=== PATIENT | female | born 1945 | race Caucasian/White ===

== ENCOUNTER → 2016-11-24 | Day surgery (SDC) | payer MEDICARE ==
[~2016-11-24] MED LIST: ABILIFY10 MG PO; ALBUTEROL17 GM INH; AMBIEN10 MG PO; ASPIRIN81 M2 PO; ASPIRIN81 MG PO; BACTRIM DS TABL1 TA1 PO; BENZONATATE PO; BUDEPRION XL150 MG PO; CONCERTA18 MG PO; CRESTOR10 MG PO; EFFEXOR PO; EFFEXOR37.5 MG PO; FLEXERIL10 MG PO; KEFLEX500 MG PO; LIPITOR40 MG PO; LORTAB 5/500 TA1 TA1 PO; LORTAB 7.5-5001 TAB PO; MS CONTIN15 M1 PO; NAPROSYN500 MG PO; NORVASC10 MG PO; ORUDIS75 M1 DOB; OXYCODONE HCL10 MG PO; PERCOCET10 PO; SYNTHROID PO; SYNTHROID125 PO; TIZANIDINE HCL4 M1 PO; VICODIN PO; [UNRECOGNIZED DRUG - REMARK] PO
--- NOTE | ~2016-11-24 | OR ---
Unit #: [id number] #: [id number] Patient: LISBET UNDERWOOD [id number] [address] [address] [id number] O MR#: [id number] NAME: LISBET UNDERWOOD ROOM: Date of Procedure: 11/24/2016 Admission Date: 11/24/2016 Surgeon: Craig Roberts M.D. : 1945 Attending Physician: Craig Roberts M.D. Primary Care Physician: Rosenda Obregon A.P.R.N. OPERATIVE REPORT PREOPERATIVE DIAGNOSES 1. Back pain. 2. Radiculopathy. 3. Degenerative disk disease. 4. Lumbar spinal stenosis. POSTOPERATIVE DIAGNOSES 1. Back pain. 2. Radiculopathy. 3. Degenerative disk disease. 4. Lumbar spinal stenosis. PROCEDURE PERFORMED Lumbar epidural steroid injection with intravenous sedation and fluoroscopic guidance for needle localization. INDICATIONS FOR PROCEDURE The patient is a 71-year-old female, partial return of back and right lower extremity pain due to nonsurgical degenerative disk and spine disease. Last epidural steroid injections in a series of two completed 4-1/2 months ago. The patient had some return of the pain over the last few weeks. Plan is to repeat injection based on her history, pathology, symptomatology, and prior response to treatment. DESCRIPTION OF PROCEDURE The patient was placed in a seated position. Standard monitors were applied. 1 mg Versed was given for sedation and anxiolysis, which was adequate. Vital signs remained stable. Sterile prep and drape then of the lumbar area was performed. The skin at the L4-L5 level was localized with 1% lidocaine. An 18-gauge Magnet Systemstead needle was then advanced via loss of resistance technique and fluoroscopic guidance in toward the epidural space. After confirming proper positioning with fluoroscopy and radiographic contrast, 80 mg of Depo-Medrol and 4 mL of 0.125% bupivacaine were deposited. The patient tolerated the procedure well and was discharged to recovery room in stable condition. Dictated by... Craig Roberts M.D. LHP/modl Unit #: [id number] #: [id number] Patient: LISBET UNDERWOOD TD: 11/25/2016 04:53 JOB #: [id number] OPERATIVE REPORT Page 1 of 1 X Craig Roberts MD X PROCEDURE OPERATIVE NOTE
== END | disposition home or self-care (01) ==
LOC: CCSC 10:34
DX: M51.16 Intervertebral disc disorders with radiculopathy, lumbar region (principal); M48.06 Spinal stenosis, lumbar region
CPT/HCPCS: J1040; J2250

== ENCOUNTER → 2016-11-30 | Outpatient (CLI) | payer MEDICARE ==
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
== END | disposition home or self-care (01) ==
LOC: CMRI 13:46
DX: M48.06 Spinal stenosis, lumbar region (principal); M54.5 Low back pain; N28.89 Other specified disorders of kidney and ureter; M48.54XS Collapsed vertebra, not elsewhere classified, thoracic region, sequela of fracture; M40.204 Unspecified kyphosis, thoracic region; M51.36 Other intervertebral disc degeneration, lumbar region
CPT/HCPCS: 72148

== ENCOUNTER → 2016-12-16 | Outpatient (CLI) | payer MEDICARE ==
--- NOTE | ~2016-12-16 | CT3 ---
[facility] A Service of [facility] RADIOLOGY TEXT RESULTS PATIENT: LISBET UNDERWOOD [facility] UNIT #: [id number] AGE: [address]: Craig Roberts MD SEX: F ORDER DR: [id number] [facility] [address] [place], [place] [address] [id number] O MR#: [id number] Acc #: [id number] NAME: LISBET UNDERWOOD. : 1945 SEX: F STUDY DATE/TIME: 12/16/2016 13:04 UNIT: [facility] ROOM: STUDY DESCRIPTION: CT Abd and Pelv WWo Cont Attending Physician: Craig Roberts M.D. Referring Physician: Craig Roberts M.D. Ordering Physician: Craig Roberts M.D. Primary Care Physician: Generic Doctor Not In System MEDICAL IMAGING REPORT This report is preliminary unless electronic signature is present EXAM CT of the abdomen and pelvis without and with contrast INDICATION Ms. Underwood is a 71-year-old lady who underwent an MRI of the lumbar spine on December 01, 2016 for spinal stenosis on that study she was noted to have a mass within the right kidney. TECHNIQUE Axial precontrast images are obtained through the kidneys. This was followed by arterial 90 second delayed and 3-minute delayed-phase imaging through the kidneys. This CT exam was performed with one or more of the following radiation dose reduction techniques: automatic control, adjustment of mA and/or kV according to patient size, and iterative reconstruction. FINDINGS Images through the lung bases demonstrates some mild dependent atelectasis and bilateral breast implants. Within the inferior pole of the right kidney the patient has a 3.8 x 3.6 cm enhancing mass, which is characteristic of renal cell carcinoma, it was present in 2010 when it measured about 2.2 cm but certainly has increased in size when compared to that examination. I do not see any convincing evidence of renal vein involvement. There is some mild stranding seen around the right kidney but I do not think it is significantly changed when compared to the prior study, no suspicious masses are seen on the left. Patient probably has an additional cyst within the inferior pole of the right kidney. A second low attenuation lesion seen more superiorly within the right kidney may reflect an additional cyst although it is really too small to accurately characterize, attention to it on subsequent exams is recommended. [facility] A Service of [facility] RADIOLOGY TEXT RESULTS PATIENT: LISBET UNDERWOOD LOCATION: [facility] : 44 UNIT #: [id number] AGE: [address]: Craig Roberts MD SEX: F ORDER DR: Liver and gallbladder appear unremarkable. Calcified granulomata are seen within the spleen, no stones are identified within either kidney on unenhanced CT images. There is atherosclerotic involvement of the abdominal aorta which extends into the visceral vessels. Celiac axis is patent. I do think there is probably some narrowing at the origin of the superior mesenteric artery and some additional at least moderate narrowing involving the renal arteries bilaterally. Single renal arteries are identified bilaterally and again I do not see any convincing evidence of renal vein involvement. I do not see any suspicious retroperitoneal adenopathy. The pancreas is atrophic. There is a small fat-containing umbilical hernia. Review of bony windows demonstrates osteoporosis. I do not see any aggressive osseous abnormalities. Patient is again noted to have multiple compression deformities the lumbar spine as well as of T12 axial images do not extend all the way into the pelvis although the coronal and sagittal reformatted images do, patient does have a large calcified uterine fibroid. This was also present on the prior study. IMPRESSION 1. This patient has a 3.8 x 3.6 cm enhancing mass seen within the inferior pole of the right kidney characteristic of renal cell carcinoma until proven otherwise. There are 2 low-attenuation lesions, additionally seen within the inferior pole of the right kidney. I suspect that these reflects cysts but are incompletely characterized due to their small size I do not see any renal vein involvement or any involvement of the pararenal fat. No retroperitoneal adenopathy is seen. 2. Dense atherosclerotic involvement of the abdominal aorta with extension into the iliac vessels and visceral vessels. Patient appears to have single renal arteries bilaterally. 3. Osteoporosis with multiple lumbar compression fractures. 4. Please see the body of the report for any other additional incidental findings. Dictated by... Marian F. Martinez, M.D. THIS IS AN ELECTRONICALLY VERIFIED REPORT Marian Martinez M.D. at 12/17/2016 2:09 PM SHARAD/orlin TD: 12/17/2016 02:25 JOB #: [id number] MEDICAL IMAGING REPORT Page 1 of 1 COPY
[2016-12-16 16:31] LABS: POC - CREATININE 0.81 mg/dL (0.44-1.03); POC - GFR >60.0 mL/min (>60)
== END | disposition home or self-care (01) ==
LOC: CCAT 12:08
PROVIDERS: Pain Medicine Pain Medicine
DX: N28.89 Other specified disorders of kidney and ureter (principal); I70.0 Atherosclerosis of aorta; M81.0 Age-related osteoporosis without current pathological fracture; M48.56XA Collapsed vertebra, not elsewhere classified, lumbar region, initial encounter for fracture
CPT/HCPCS: 74178; 82565; Q9967

== ENCOUNTER → 2017-03-21 | Day surgery (SDC) | payer MEDICARE ==
--- NOTE | ~2017-03-21 | OR ---
Unit #: [id number] #: [id number] Patient: LISBET UNDERWOOD [id number] [place], [place] [address] [id number] O MR#: [id number] NAME: LISBET UNDERWOOD ROOM: Date of Procedure: 03/21/2017 Admission Date: 03/21/2017 Surgeon: Craig Roberts M.D. : 1945 Attending Physician: Craig Roberts M.D. Primary Care Physician: Generic Doctor Not In System OPERATIVE REPORT PREOPERATIVE DIAGNOSES Back pain, radiculopathy, degenerative lumbar disk disease, lumbar compression fracture. POSTOPERATIVE DIAGNOSIS Back pain, radiculopathy, degenerative lumbar disk disease, lumbar compression fracture. PROCEDURE PERFORMED Lumbar epidural steroid injection with intravenous sedation and fluoroscopic guidance for needle localization. INDICATIONS FOR PROCEDURE The patient is a 71-year-old female with return of back and right lower extremity pain. She has multilevel multifactorial degenerative disk and spine disease, most significant at the L4-L5 level. She settled with medical management and p.r.n. single epidural steroids. Last injection was done 4 months ago. Plan is to repeat injection at this point secondary to flare in her pain, her pathology, symptomatology, and treatment options. DESCRIPTION OF PROCEDURE The patient was placed in a seated position. Standard monitors were applied. 1 mg of Versed was given for sedation and anxiolysis, which were adequate. Vital signs remained stable. Sterile prep and drape then of lumbar area was performed. The skin then at the right of midline at the L4 level was localized with 1% lidocaine. An 18-gauge NetMovietead needle was then advanced via right paramedian approach and loss of resistance technique in toward the epidural space. The patient did not complain of pain or paresthesia during needle advancement. After confirming proper needle tip positioning with fluoroscopy and radiographic contrast, 80 mg of Depo-Medrol and 6 mL of 0.125% bupivacaine were deposited. The patient tolerated the procedure otherwise well and was discharged to the recovery room in stable condition. Dictated by... João Herzog/elias TD: 03/21/2017 13:15 Unit #: [id number] #: [id number] Patient: LISBET UNDERWOOD JOB #: [id number] OPERATIVE REPORT Page 1 of 1 X Craig Roberts MD X PROCEDURE OPERATIVE NOTE
== END | disposition home or self-care (01) ==
LOC: CCSC 10:23
PROVIDERS: Pain Medicine Pain Medicine
PROC: 3E0S33Z Introduction of Anti-inflammatory into Epidural Space, Percutaneous Approach (ICD-10-PCS; principal; 2017-03-21 11:00)
DX: M51.16 Intervertebral disc disorders with radiculopathy, lumbar region (principal); M48.56XA Collapsed vertebra, not elsewhere classified, lumbar region, initial encounter for fracture
CPT/HCPCS: J1040; J2250

== ENCOUNTER 2017-04-11 05:35 | Observation (INO) | payer MEDICARE ==
[~2017-04-11] VITALS: Ht 157.5 cm; Wt 49.5 kg
--- NOTE | ~2017-04-11 | CR72 ---
[facility] A Service of [facility] RADIOLOGY TEXT RESULTS PATIENT: LISBET UNDERWOOD LOCATION: [place] [address] : 43 UNIT #: [id number] AGE: [address]: Kavitha Nicolas MD SEX: F ORDER DR: [id number] [facility] [address] [place], [place] [address] [id number] I MR#: [id number] Acc #: [id number] NAME: LISBET UNDERWOOD. : 1945 SEX: F STUDY DATE/TIME: 04/11/2017 6:06 UNIT: [facility] ROOM: [facility] STUDY DESCRIPTION: CR Chest Single View Portable Attending Physician: Kavitha Nicoals M.D. Ordering Physician: Lio Kelley M.D. Primary Care Physician: Primary Care Physician No MEDICAL IMAGING REPORT This report is preliminary unless electronic signature is present EXAM Portable chest HISTORY Chest pain, shortness of air since yesterday. COMPARISON 07/25/2011. FINDINGS Portable view of the chest was obtained. Heart size and vascularity are normal. Lungs appear clear except for some minimal atelectasis in the right infrahilar region. Bones are normal. IMPRESSION 1. In the right infrahilar region there is some minimal density which is transversely oriented suggesting some atelectasis. I cannot rule out a small middle lobe infiltrate. Otherwise study is normal. Dictated by... Daniel Turner M.D. THIS IS AN ELECTRONICALLY VERIFIED REPORT Daniel Turner M.D. at 04/11/2017 1:29 PM RAINER/rnr TD: 04/11/2017 12:59 JOB #: [id number] MEDICAL IMAGING REPORT [facility] A Service [facility] RADIOLOGY TEXT RESULTS PATIENT: LISBET UNDERWOOD LOCATION: [facility]09-04 : 44 UNIT #: [id number] AGE: [address]: Kavitha Nicolas MD SEX: F ORDER DR: Page 1 of 1 COPY
--- NOTE | ~2017-04-11 | CT71 ---
[facility] A Service [facility] RADIOLOGY TEXT RESULTS PATIENT: LISBET UNDERWOOD LOCATION: [place] [address] : 43 UNIT #: [id number] AGE: [address]: Kavitha Nicolas MD SEX: F ORDER DR: [id number] [facility] [address] [place], [place] [address] [id number] I MR#: [id number] Acc #: [id number] NAME: LISBET UNDERWOOD. : 1945 SEX: F STUDY DATE/TIME: 04/11/2017 6:21 UNIT: [facility] ROOM: [facility] STUDY DESCRIPTION: CT Head Wo Contrast Attending Physician: Kavitha Nicolas M.D. Ordering Physician: Lio Kelley M.D. Primary Care Physician: No Primary Care Physician MEDICAL IMAGING REPORT This report is preliminary unless electronic signature is present EXAM CT scan of the brain without contrast. INDICATION Confusion since yesterday with headache. TECHNIQUE Unenhanced images were obtained through the brain. This CT exam was performed with one or more of the following radiation dose reduction techniques: automatic exposure control, adjustment of mA and/or kV according to patient size, and iterative reconstruction. FINDINGS There is mild generalized atrophy with minimal small vessel ischemic changes. There are no masses or extraaxial fluid collections. IMPRESSION Mild atrophy and small vessel ischemic changes. No acute abnormalities. Dictated by... Daniel Turner M.D. THIS IS AN ELECTRONICALLY VERIFIED REPORT Daniel Turner M.D. at 04/11/2017 3:25 PM RAINER/mike TD: 04/11/2017 13:40 JOB #: [id number] MEDICAL IMAGING REPORT [facility] A Service [facility] RADIOLOGY TEXT RESULTS PATIENT: LISBET UNDERWOOD LOCATION: [facility]09-04 : 43 UNIT #: [id number] AGE: [address]: Kavitha Nicolas MD SEX: F ORDER DR: Page 1 of 1 COPY
--- NOTE | ~2017-04-11 | MR18 ---
[facility] A Service of [facility] RADIOLOGY TEXT RESULTS PATIENT: LISBET UNDERWOOD LOCATION: [place] [address]- : 43 UNIT #: [id number] AGE: [address]: Kavitha Nicolas MD SEX: F ORDER DR: [id number] [facility] [address] [place], [place] [address] [id number] I MR#: [id number] Acc #: [id number] NAME: LISBET UNDERWOOD. : 1945 SEX: F STUDY DATE/TIME: 04/11/2017 22:34 UNIT: [facility] ROOM: [facility] STUDY DESCRIPTION: MR Brain Wo Contrast Attending Physician: Kavitha Nicolas M.D. Ordering Physician: Kavitha Nicolas M.D. Primary Care Physician: Primary Care Physician No MRI CENTER REPORT This report is preliminary unless electronic signature is present. EXAM MRI of the brain without contrast, 04/11/[address] head without contrast, 04/11/2017 HISTORY Memory loss that began around [place]. It is worse in the last month. Confusion. History of thyroid carcinoma. FINDINGS Multi-sequence, multiplanar imaging of the brain was obtained without contrast as per the request. No acute stroke, space occupying intracranial mass, mass effect, midline shift or hydrocephalus. Scattered multiple hyperintense T2 signal lesions are noted in the periventricular white matter, subcortical white matter, bilateral basal ganglia, right thalamus and devonte. Thick slices through the sella with the pituitary gland, pineal region and upper cervical spine do not demonstrate any significant abnormality. IMPRESSION 1. Scattered multiple hyperintense T2 signal lesions are noted in the brain, likely related to moderate chronic microvascular ischemic change, migraine with possible old lacunar infarcts among them. It is based on age and statistics, nonspecific. 2. There is diffuse mild parenchymal volume loss predominantly involving bifrontal parietal lobes extending towards the temporal lobes. It does not appear to be significantly worse for patient's age. Dictated by... Melly Bunn M.D. [facility] A Service of [facility] RADIOLOGY TEXT RESULTS PATIENT: LISBET UNDERWOOD LOCATION: [place] [address] : 43 UNIT #: [id number] AGE: [address]: Kavitha Nicolas MD SEX: F ORDER DR: THIS IS AN ELECTRONICALLY VERIFIED REPORT Melly Bunn M.D. at 04/12/2017 3:29 PM CPR/william TD: 04/12/2017 12:33 JOB #: [id number] MRI CENTER REPORT Page 1 of 1 COPY
--- NOTE | ~2017-04-11 | HP ---
Unit #: [id number] #: [id number] Patient: LISBET UNDERWOOD [id number] [address] [place], [place] [address] [id number] I MR#: [id number] NAME: LISBET UNDERWOOD. ROOM: 35742 Age: 71 Sex: F Admission Date: 04/11/2017 : 1945 Attending Physician: Kavitha Nicolas M.D. Primary Care Physician: No Primary Care Physician HISTORY AND PHYSICAL PRIMARY CARE PROVIDER Unknown. CHIEF COMPLAINT Chest pain, memory loss. HISTORY OF PRESENT ILLNESS Ms. Underwood is a 71-year-old female, who presents to the ER with complaints of chest pain. I will note patient is a very poor historian and story changes between the ER notes and my interview. Patient states she developed chest pain last evening, described as in the substernal region and sharp/stabby. It was associated with nausea intermittently but no emesis, shortness of breath and palpitations. She also felt as if her heart was racing. She states she was anxious with the episode. She tells me she has only been having the chest pain for the last couple of days. However, according to the ER notes, she has had chest pain on and off for months. The chest pain itself will only last a few minutes and resolves spontaneously. She has not been getting more short of breath with exertion, nor does she have any chest pain with exertion. She is also complaining of some increasing memory loss. Again, history is vague. Per ER physician, EMS was told by her family that she has had increasing memory loss over the last month. However, patient tells me it is over the past couple of days. She says she is forgetful and cannot always remember what she wants to say. Upon presentation to this emergency department, patient received aspirin. Vital signs were all stable with the exception of elevated blood pressure of 167/80. Examination per ER records is unremarkable. Initial troponin x2 has been negative. The patient does not have any chest pain now. She denies any symptoms of heartburn. She denies any constipation. She denies any pain with movement. Patient is being placed in observation for further workup. I will note that patient's urinalysis in the emergency department had 25-50 WBCs but no bacteria and she received a single dose of Macrobid. PAST MEDICAL HISTORY Past medical history I will note is essentially taken from the ER list. Patient really cannot tell me much of her medical history. 1. Questionable renal cell carcinoma, status post partial right nephrectomy at [facility] in February of 2017. 2. History of thyroid cancer, status post thyroidectomy. 3. Mitral valve prolapse. 4. Depression. 5. Hypertension. 6. Chronic pain syndrome for which patient is followed by Dr. Roberts on an outpatient basis. Unit #: [id number] #: [id number] Patient: LISBET UNDERWOOD 7. Tobaccoism. PAST SURGICAL HISTORY 1. Partial right nephrectomy. 2. Thyroidectomy. 3. Some sort of facial plastic surgery. MEDICATIONS Home medications are not available given her pharmacy is closed but per med list most recently available, the patient received: 1. Synthroid. 2. Abilify. 3. Effexor. 4. Tizanidine. 5. Lipitor. 6. Lortab. 7. Morphine. She initially denies any med changes, then states she recently had morphine changed. FAMILY HISTORY I am unable to obtain. Patient does not know. SOCIAL HISTORY The patient lives at home with her grandson. She smokes a pack of cigarettes per day and has so for 50 years; however, she states she quit yesterday. She denies any illicit drug use. She states she did have a fall at home last night, she thinks off of her bed, but she is not having any pain. REVIEW OF SYSTEMS Review of systems is difficult to obtain given patient's tangential, but she does not have any chest pain now. She does not have any cough. She does not have any fever, any shortness of breath, any constipation, diarrhea, melena, hematochezia, or dysuria. No new joint pain. No new tingling, numbness, weakness of extremities. No difficulty with speech. PHYSICAL EXAMINATION VITAL SIGNS: Temperature 98.2, blood pressure currently in the room 151/65, pulse rate 74, respiratory rate 16, oxygen saturation 98% on room air. GENERAL: Patient is awake. She is alert. She is oriented to self and occasionally to place but not to time. HEENT: Pupils equally round and reactive to light bilaterally. Anicteric sclerae. No conjunctival pallor. Oropharynx with dry mucous membranes. No erythema or exudate. NECK: Supple. No lymphadenopathy. No appreciable thyroid noted. No JVD. HEART: Regular rate and rhythm without any appreciable murmur, rub, or gallop. LUNGS: Mildly diminished bilaterally but otherwise clear without wheeze, rhonchi, or crackles. No tenderness to palpation of anterior chest. ABDOMEN: Soft. It is nontender. It is nondistended. Positive bowel sounds. No appreciable hepatosplenomegaly. Patient did not want to remove her clothing to evaluate for a nephrectomy scar. EXTREMITIES: No cyanosis, clubbing, or edema. Pedal pulse 2/4. SKIN: Skin is warm, moist, without rash. Unit #: [id number] #: [id number] Patient: LISBET UNDERWOOD NEUROLOGIC: Cranial nerves II-XII intact. Sensation, strength, and deep tendon reflexes are grossly normal in the upper and lower extremities bilaterally. Negative Babinski bilaterally. Cerebellar function appears intact. Gait was not assessed, however. PSYCHIATRIC: Again oriented really x2 at the most. Very tangential. Very forgetful, but denies any suicidal or homicidal ideation. DIAGNOSTIC STUDIES LABORATORY: Lab work done in the emergency department today includes a CBC which is completely normal with a white blood cell count of 7.5, hemoglobin 13.3, platelet count 235,000. Troponin has been negative x2. INR is 1. CMP reveals a sodium of 137, potassium 3.7, chloride 101, bicarbonate 25, BUN 8, creatinine 0.7, glucose 100. LFTs are normal including an albumin of 3.7. Urinalysis reveals 1+ leukocyte esterase, 2+ blood, 10-25 WBCs but is negative for bacteria with occasional squamous cells. IMAGING: Chest x-ray done in the emergency department revealed some right middle lobe atelectasis. CT scan of the head without contrast reveals small vessel disease and atrophy with no other acute findings. CARDIOVASCULAR: EKG done in the emergency department reveals normal sinus rhythm. Patient does have Q waves present in III and aVF, also has Q waves in V1, V2, and V3. However, there is no other acute ST or T wave abnormalities. ASSESSMENT 1. Atypical chest pain. 2. Memory loss, question acute versus chronic with progression. 3. Hypertension. 4. Anxiety with depression. 5. Chronic pain syndrome, maintained on chronic narcotics. 6. Patient report of recent partial nephrectomy. 7. History of thyroid cancer, status post thyroidectomy. 8. Tobacco abuse. PLAN 1. Will place patient in observation on telemetry. 2. Serial troponins remain negative as has workup. I am going to arrange for Lexiscan Cardiolite this morning to rule out cardiac cause of chest pain. 3. I will also place patient on Protonix but again she denies any symptoms of heartburn. 4. I will check TSH and vitamin B12 in regard to patient's memory loss and further evaluate. Will try to obtain some history from family as well. 5. Will obtain home medications in regard to hypertension. If on any, re-initiate. 6. I will check a urine drug screen to be sure we are not missing anything medication matute that may be contributing to patient's memory loss. Will re-initiate meds to avoid withdrawal. 7. I will try to get a copy of most recent history and physical, discharge summary, and [employer] sales consultant notes from [place] from February of 2017 when patient states she had her nephrectomy. 8. I will provide nitroglycerin on a p.r.n. basis and will check a fasting lipid panel as well. Will continue aspirin as well. Unit #: [id number] #: [id number] Patient: LISBET UNDERWOOD 9. Physical therapy, occupational therapy to evaluate and treat. 10. Hold deep venous thrombosis prophylaxis given hospitalization likely to be less than 48 hours. 11. Will re-initiate meds for depression and have psychiatry see if workup otherwise negative. Dictated by Kavitha Nicolas M.D. Adele/kd TD: 04/11/2017 09:00 JOB #: [id number] HISTORY AND PHYSICAL Page 1 of 1 X Kavitha Nicolas MD X HISTORY AND PHYSICAL
--- NOTE | ~2017-04-11 | EKG ---
PATIENT: LISBET UNDERWOOD UNIT #: [id number] Ventricular Rate: 77 BPM Atrial Rate: 77 BPM P-R Interval: 182 ms QRS Duration: 110 ms Q-T Interval: 432 ms QTC Calculation(Bezet): 488 ms P [place]: 23 degrees Calculated R [place]: -7 degrees Calculated T [place]: 54 degrees Diagnosis Line: Normal sinus rhythm Diagnosis Line: Inferior infarct , age undetermined Diagnosis Line: Anterior infarct (cited on or before 19-JUL-2011) Diagnosis Line: Abnormal ECG Diagnosis Line: When compared with ECG of 19-JUL-2011 16:39, Diagnosis Line: Inferior infarct is now Present Diagnosis Line: Questionable change in initial forces of Anterior Diagnosis Line: leads Diagnosis Line: T wave inversion no longer evident in Anterior Diagnosis Line: leads Diagnosis Line: Confirmed by NANCY SMITH MD ([id number]) on 04/11/2017 Diagnosis Line: 11:58:38 PM INTERPRETING MD: SARAH MENDEZ
--- NOTE | ~2017-04-11 | CO ---
Unit #: [id number] #: [id number] Patient: LISBET UNDERWOOD [id number] [address] [address] [id number] I MR#: [id number] NAME: LISBET UNDERWOOD. ROOM: 551 Age: 71 Sex: F Admission Date: 04/11/2017 : 1945 Attending Physician: Kavitha Nicolas M.D. Primary Care Physician: Primary Care Physician No CONSULTATION REPORT REASON FOR CONSULTATION Anxiety and depression. HISTORY OF PRESENT ILLNESS Ms. Kavitha Underwood is a 71-year-old white female, seen in room 551, bed 1 on 04/12/2017. The patient dressed casually in hospital attire, lying comfortably in bed. The patient reports a history of depression and anxiety and currently on medication. The patient denied any suicidal or homicidal ideation. Denied any psychotic symptom. The patient was admitted with a chief complaint of chest pain and memory loss. The patient reports taking Synthroid and Effexor, which she feels is not working, and still having symptoms of depression and anxiety, but denied any hallucination or suicidal or homicidal ideation. The patient reports that she has a good support system. No use of any drugs or alcohol. PAST PSYCHIATRIC HISTORY Remarkable for history of depression and anxiety and receiving treatment on the outpatient basis. No history of suicide attempt or any inpatient treatment known at this time. MEDICATION HISTORY The patient is on Synthroid, Abilify, Effexor, tizanidine, Lipitor, Lortab, and morphine. MEDICAL HISTORY Remarkable for history of renal cell carcinoma, history of thyroid cancer, mitral valve prolapse, hypertension, chronic pain syndrome. FAMILY HISTORY AND SOCIAL HISTORY The patient has a good support system from family. No history of abuse. No known history of any substance abuse. REVIEW OF SYSTEMS Complete review of system is unremarkable except as mentioned above. MENTAL STATUS EXAMINATION Vital signs; please see above. General appearance; the patient dressed casually, lying comfortably in bed, seemed somewhat anxious and nervous. Attention span and concentration, fair. Speech, regular rate and coherent. Oriented in time, place, and person. Mood and affect were sad, dysphoric, labile. Thought process, coherent. Thought content, the patient denied any thoughts of harming self or others or any psychotic symptom. Recent and remote memory, fair to slightly impaired. Language, intact. Fund of knowledge, fair. Insight and judgment, fair to slightly Unit #: [id number] #: [id number] Patient: LISBET UNDERWOOD impaired. DIAGNOSES Psychiatric: Major depressive disorder, recurrent, severe, F33.2; rule out probable major neurocognitive disorder due to Alzheimer disease without behavioral disturbances, F02.80. Secondary diagnosis: Deferred. Medical diagnosis: Please refer to H and P. Stressors: Psychosocial stressor. ASSESSMENT/PLAN 1. Supportive psychotherapy and psychoeducation provided to the patient. 2. Educated about benefits and side effects of medication and course and prognosis of illness. 3. Advised to continue with current medication Abilify 10 mg and Effexor 37.5 mg b.i.d. The patient is also on Ambien. Reports that she would like to stop Effexor. The patient was advised to follow up with the outpatient psychiatrist or follow up in outpatient program of [facility] and given crisis line #[phone]. Please feel free to call if any questions, telephone #[phone]. Dictated by... João Sunshine/elias TD: 04/13/2017 09:34 JOB #: [id number] CONSULTATION REPORT Page 1 of 1 X Zachary Hernandez MD X CONSULTATION REPORT
--- NOTE | ~2017-04-11 | DS ---
Unit #: [id number] #: [id number] Patient: LISBET UNDERWOOD [id number] [address] [place], [place] [address] [id number] I MR#: [id number] NAME: LISBET UNDERWOOD. ROOM: 551 Age: 71 Sex: F Admission Date: 04/11/2017 : 1945 Discharge Date: 04/12/2017 Attending Physician: Kavitha Nicolas M.D. Primary Care Physician: No Primary Care Physician DISCHARGE SUMMARY PRINCIPAL DIAGNOSES 1. Atypical chest pain. Likely secondary to panic attack. 2. Hypertension. 3. Hyperlipidemia, uncontrolled. 4. Memory loss secondary to probable underlying dementia, question vascular versus other. 5. Anxiety and depression, uncontrolled. 6. Chronic pain syndrome, maintained on opiates. 7. Hypothyroidism. 8. Tobaccoism. 9. Mitral valve prolapse. 10. History of thyroid cancer. 11. Renal cell carcinoma, status post partial right nephrectomy in 02/2017. CONSULTANTS Dr. Heranndez, psychiatry. PROCEDURES PERFORMED Attempted Lexiscan Cardiolite, with the patient ultimately refusing. DIAGNOSTIC DATA IMAGING: CT of the head without contrast on 04/10/2017 with mild atrophy and small vessel ischemic change. MRI of the brain on 04/11/2017 with microvascular changes and questionable old lacunar infarct. Volume loss in the bifrontal extending to the temporal lobes noted. Chest x-ray on 04/11/2017 with right middle lobe atelectasis. CLINICAL HISTORY/HOSPITAL COURSE Ms. Underwood is a 71-year-old female who presented to the emergency department with complaints of chest pain. Please refer to history and physical for further workup. Initial troponin in the emergency department was unremarkable. The patient's family was also concerned about some underlying memory loss and for these reasons the patient was subsequently admitted. Serial troponins remained negative. Lexiscan Cardiolite was ordered and the patient completed the initial portion, but subsequently refused the next portion. Telemetry remained normal. Will note her LDL was found to be significantly elevated at 189 and she informed me that she was not taking her cholesterol pill recently because she forgets, but also because Unit #: [id number] #: [id number] Patient: LISBET UNDERWOOD she went up on statins and is worried about taking them. I informed her that it is important that she take it and she is agreeable. No further cardiac workup planned. Can be done on an outpatient basis if necessary. The patient was also found to be hypertensive. I placed her on a low dose of Norvasc. She needs close followup of her blood pressure. Orthostatics are still currently pending and will be done prior to discharge. The patient does have some significant underlying memory loss with vascular changes noted on both CT scan and MRI. I will note TSH, vitamin B12 and RPR were all normal. I discussed this memory loss with the patient's daughter, Ms. Rebecca Foley, and she has expressed understanding. Will have home health evaluate the patient and help with medications at home. The patient does have significant underlying anxiety and depression, which may be mimicking her dementia or perhaps her dementia is making it worse. Dr. Hernandez saw the patient in consultation. He suggested to continue current medications, i.e. keep her on Effexor as an outpatient and perhaps reinitiation of other medications as an outpatient. Today the patient is relatively stable and has had no other chest pain and will be discharged home. DISCHARGE CONDITION Stable. DISPOSITION Discharge to home. DISCHARGE MEDICATIONS 1. Norvasc 10 mg daily with 1 refill given. 2. Effexor 37.5 mg b.i.d. 3. Abilify 10 mg at bedtime. 4. Lipitor 40 mg at bedtime. 5. Aspirin 81 mg daily. 6. MS Contin 15 mg p.o. t.i.d. 7. Percocet 10/325 mg 1 tablet p.o. q.6 h. p.r.n. pain. I will note, the patient's daughter states this was recently changed to Lortab, though Percocet was the last thing filled on [facility]. She should continue her pain medications per Dr. Roberts. 8. Levothyroxine 125 mcg p.o. daily. Please note, two refills of this were given as well in addition to two refills of Lipitor. DIET The patient is instructed to follow a heart healthy diet. ACTIVITY She can increase her activity as tolerated. She is to refrain from any other tobacco use. FOLLOWUP 1. The patient will follow up with her primary care provider in two weeks. 2. She will follow up with [facility] on an outpatient basis. Dictated by... Unit #: [id number] #: [id number] Patient: LISBET UNDERWOOD M.D. KEH/rosy TD: 04/14/2017 09:09 JOB #: [id number] DISCHARGE SUMMARY Page 1 of 1 X Kavitha Nicolas MD X DISCHARGE SUMMARY
[~2017-04-11 05:35] MED LIST changes: -ASPIRIN81 M2 PO; -ASPIRIN81 MG PO; -EFFEXOR37.5 MG PO; -LIPITOR40 MG PO; -MS CONTIN15 M1 PO; -NORVASC10 MG PO; -PERCOCET10 PO; -TIZANIDINE HCL4 M1 PO
[2017-04-11 06:19] LABS: BASOPHIL# 0.1 X10e3 (0-0.3); EOSINOPHIL# 0.2 X10e3 (0-0.7); EOSINOPHIL% 2.1 % (0.0-7.0); HEMATOCRIT 39.4 % (35.0-45.0); HEMOGLOBIN 13.3 gm/dL (12.0-16.0); LYMPHOCYTE# 1.3 X10e3 (1.0-3.5); LYMPHOCYTE% 17.9 % (17.0-45.0); MEAN CELL VOLUME 89.9 FL (83-96); MEAN CORPUSCULAR HEMOGLOBIN 30.4 PG (28-34); MEAN CORPUSCULAR HGB CONC 33.8 g/dL (30-36); MEAN PLATELET VOLUME 7.4 FL (6.5-11.5); MONOCYTE# 0.4 X10e3 (0-1.0); MONOCYTE% 4.9 % (3.0-12.0); NEUTROPHIL# 5.6 X10e3 (1.5-7.1); NEUTROPHIL% 74.1 % (40-75); PLATELET COUNT 235 X10e3 (140-420); RED BLOOD COUNT 4.38 X10e (3.90-5.30); WHITE BLOOD COUNT 7.5 X10e3 (4.0-10.5)
[2017-04-11 06:23] LABS: DIFF IND NO
[2017-04-11 06:32] LABS: POC - CKMB 2.9 ng/mL (0.0-7.9); POC - TROPONIN <0.05 ng/mL (<=0.05)
[2017-04-11 06:37] LABS: PARTIAL THROMBOPLASTIN TIME 26.2 SECONDS (23.5-31.3); PROTHROMBIN TIME (PATIENT) 11.1 SECONDS (10.0-11.7)
[2017-04-11 06:52] LABS: ALBUMIN SERUM 3.7 g/dL (3.5-5.0); BILIRUBIN, DIRECT 0.1 mg/dL (0.0-0.2); BILIRUBIN,INDIRECT 0.2 mg/dL (0.0-0.9); BILIRUBIN,TOTAL 0.3 mg/dL (0.2-2.0); BUN/CREATININE RATIO 11.42; CALCIUM SERUM 8.8 mg/dL (8.4-10.2); CREATININE SERUM 0.7 mg/dL (0.6-1.4); GLOM FILT RATE Estimated 86.6 mL/min (>60); POTASSIUM 3.7 mmol/L (3.5-5.1)
[2017-04-11 06:58] LABS: URINE SOURCE CLEAN CATCH
[2017-04-11 07:04] LABS: URINE APPEARANCE CLEAR; URINE BILIRUBIN NEG (NEG); URINE BLOOD 2+ (NEG); URINE COLOR YELLOW; URINE GLUCOSE NEG (NEG); URINE KETONE TRACE (NEG); URINE LEUKOCYTE ESTERASE 1+ (NEG); URINE NITRATE NEG (NEG); URINE PROTEIN NEG (NEG); URINE UROBILINOGEN 0.2 MG/DL (NEG)
[2017-04-11 07:06] LABS: CULTURE INDICATED? YES; URINE BACTERIA AUWI NEG (NEGATIVE); URINE SQUAMOUS EPITHELIAL CELL OCC /[HPF]
[2017-04-11 08:14] LABS: POC - CKMB 2.4 ng/mL (0.0-7.9); POC - TROPONIN <0.05 ng/mL (<=0.05)
[2017-04-11 13:07] LABS: CHOLESTEROL 268 mg/dL (0-200); HDL CHOLESTEROL 62 mg/dL (35-95); LDL/HDL RATIO 3 RATIO (0-4); TRIGLYCERIDES 86 mg/dL (10-160)
[2017-04-11 13:10] LABS: LDL CHOLESTEROL 189 mg/dL (-130)
[2017-04-12] MEDS ORDERED: LIPITOR40 MG PO (12:18)
[2017-04-12] MEDS ORDERED: ASPIRIN81 MG PO (12:19)
[2017-04-12] MEDS ORDERED: MS CONTIN15 M1 PO (12:25)
[2017-04-12] MEDS ORDERED: PERCOCET10 PO (12:27)
[2017-04-12] MEDS ORDERED: NORVASC10 MG PO (12:27)
[2017-04-12] MEDS ORDERED: EFFEXOR37.5 MG PO (13:22)
[2017-04-12] MEDS ORDERED: ABILIFY10 MG PO (13:23)
[2017-05-17] MEDS ORDERED: TIZANIDINE HCL4 M1 PO (12:31)
[2017-05-17] MEDS ORDERED: ASPIRIN81 M2 PO (12:36)
== END 2017-04-12 15:15 | disposition home or self-care (01) ==
LOC: CED 05:35 → CEDOF 07:39 → CED 07:52 → C5B 11:04 → CEDOF 11:04 → C5B 11:04
PROVIDERS: Emergency Medicine; Internal Medicine
DX: R07.89 Other chest pain (principal); I10 Essential (primary) hypertension; E78.5 Hyperlipidemia, unspecified; R41.3 Other amnesia; F41.9 Anxiety disorder, unspecified; F32.9 Major depressive disorder, single episode, unspecified; G89.4 Chronic pain syndrome; E03.9 Hypothyroidism, unspecified; I34.1 Nonrheumatic mitral (valve) prolapse; F17.210 Nicotine dependence, cigarettes, uncomplicated; Z85.850 Personal history of malignant neoplasm of thyroid; Z85.53 Personal history of malignant neoplasm of renal pelvis; Z90.5 Acquired absence of kidney; Z88.8 Allergy status to other drugs, medicaments and biological substances; Z79.84 Long term (current) use of oral hypoglycemic drugs; Z79.899 Other long term (current) drug therapy
CPT/HCPCS: 36415; 70450; 70551; 71010; 80048; 80061; 80076; 81003; 82553; 82607; 84443; 84484; 85025; 85610; 85730; 86592; 87086; 93005; 96374; 97162; 97165; 99285; G0378; G8978-GP; G8979-GP; G8980-GP; G8987-GO; G8988-GO; G8989-GO; J2060

== ENCOUNTER → 2017-05-18 | Day surgery (SDC) | payer MEDICARE ==
[~2017-05-18] MED LIST changes: +ASPIRIN81 M2 PO; +ASPIRIN81 MG PO; +EFFEXOR37.5 MG PO; +LIPITOR40 MG PO; +MS CONTIN15 M1 PO; +NORVASC10 MG PO; +PERCOCET10 PO; +TIZANIDINE HCL4 M1 PO
--- NOTE | ~2017-05-18 | OR ---
Unit #: [id number] #: [id number] Patient: LISBET UNDERWOOD [id number] [address] [place], [place] [address] [id number] MR#: [id number] NAME: LISBET UNDERWOOD ROOM: Date of Procedure: 05/18/2017 Admission Date: 05/18/2017 Surgeon: Craig Roberts M.D. : 1945 Attending Physician: Craig Roberts M.D. OPERATIVE REPORT JOB NOTE: CC: [facility] PREOPERATIVE DIAGNOSES Back pain, radiculopathy, degenerative disk disease, lumbar compression fracture. POSTOPERATIVE DIAGNOSES Back pain, radiculopathy, degenerative disk disease, lumbar compression fracture. PROCEDURE PERFORMED Lumbar epidural steroid injection with intravenous sedation and fluoroscopic guidance for needle localization. INDICATIONS FOR PROCEDURE The patient is a 72-year-old female, who had return of back and right greater than left lower extremity pain. She has significant multilevel degenerative disk disease and spinal stenosis. She has had lumbar compression fracture that are chronic. She had been treated with p.r.n. epidural steroid injections in conjunction with medical management. Last injection done 2 months ago resulted in definite improvement in ability to walk and chores, still depend upon assist devices. Based on a good partial response, pathology, symptomatology, and limited other options, we are going to proceed with a second injection today. DESCRIPTION OF PROCEDURE The patient was placed in a seated position. Standard monitors were applied. 1 mg of Versed were given for sedation and anxiolysis, which were adequate. Vital signs remained stable. Sterile prep and drape then of the lumbar area was performed. The skin then at the L4-L5 level was localized with 1% lidocaine. An 18-gauge Therapeutic Proteinstead needle was then advanced via loss of resistance technique and fluoroscopic guidance in toward the epidural space. After confirming proper positioning with fluoroscopy and radiographic contrast, 80 mg of Depo-Medrol and 6 mL of 0.125% bupivacaine were deposited. The patient tolerated the procedure well and was discharged to recovery room in stable condition. Dictated by... Craig Roberts M.D. P/modl Unit #: [id number] #: [id number] Patient: LISBET UNDERWOOD TD: 05/18/2017 11:55 JOB #: [id number] OPERATIVE REPORT Page 1 of 1 X Craig Roberts MD X PROCEDURE OPERATIVE NOTE
== END | disposition home or self-care (01) ==
LOC: CCSC 09:53
DX: M54.9 Dorsalgia, unspecified (principal); M79.604 Pain in right leg; M79.605 Pain in left leg; M51.16 Intervertebral disc disorders with radiculopathy, lumbar region; M48.56XA Collapsed vertebra, not elsewhere classified, lumbar region, initial encounter for fracture; M48.06 Spinal stenosis, lumbar region
CPT/HCPCS: J1040; J2250